=== PATIENT | female | born 1985 | race Native Hawaiian/Other Pacific Islander ===

== ENCOUNTER 2018-02-05 19:50 | Emergency (ER) | payer OTHER ==
[~2018-02-05] VITALS: Ht 162.6 cm; Wt 89.8 kg
[2018-02-05] MEDS ORDERED: CELEXA40 MG PO (20:03)
[2018-02-05] MEDS ORDERED: HYDR50CA21 PO (20:03)
== END 2018-02-05 20:13 | disposition home or self-care (01) ==
LOC: ED 19:50
DX: H92.02 Otalgia, left ear (principal); H61.23 Impacted cerumen, bilateral
CPT/HCPCS: 99281

== ENCOUNTER 2021-10-27 08:41 | Emergency (ER) | payer OTHER ==
[~2021-10-27] VITALS: Ht 157.5 cm; Wt 64.4 kg
[~2021-10-27 08:41] MED LIST: CELEXA40 MG PO; HYDR50CA21 PO
[2021-10-27 09:24] LABS: PLATELET COUNT 251 K/uL (152-353)
[2021-10-27 09:35] LABS: POTASSIUM 4.1 mmol/L (3.6-5.2)
[2021-10-27 11:38] VITALS: BP 125/87; TEMP 97.8
== END 2021-10-27 11:38 | disposition home or self-care (01) ==
LOC: ED 08:41
PROVIDERS: Hospitalist
DX: N94.6 Dysmenorrhea, unspecified (principal); R10.84 Generalized abdominal pain; K59.09 Other constipation
CPT/HCPCS: 36415; 80053; 81000; 81025; 83690; 85027; 96360; 96374; 96375; 96376; 99284; J1885; J2270; J2405; Q9963

== ENCOUNTER 2022-05-11 15:44 | Emergency (ER) | payer OTHER ==
[~2022-05-11] VITALS: Ht 157.5 cm; Wt 64.4 kg
[2022-05-11 15:48] VITALS: TEMP 97.2
[2022-05-11 17:13] VITALS: BP 112/77
== END 2022-05-11 17:13 | disposition home or self-care (01) ==
LOC: ED 15:44
DX: G43.909 Migraine, unspecified, not intractable, without status migrainosus (principal)
CPT/HCPCS: 96372; 99283; J1200; J1885; J2405